=== PATIENT | male | born 1990 | race Caucasian/White ===

== ENCOUNTER 2016-12-10 15:38 | Emergency (ER) | payer SELFPAY ==
[~2016-12-10] VITALS: Ht 167.6 cm; Wt 70.0 kg
[2016-12-10 15:40] VITALS: BP 127/62; PULSE 84; RESP 16; TEMP 97.9; O2SAT 95
[2016-12-10] MEDS ORDERED: PRED20 PO (16:38)
[2016-12-10] MEDS ORDERED: CLOTCRE TOPICAL (16:38)
--- NOTE | 2016-12-10 16:39 | PD ---
HPI Chief Complaint: Skin Problem Time Seen by Provider: 16:34 Travel History International Travel<30 days: No Contact w/Intl Traveler<30days: No Traveled to known affect area: No History of Present Illness HPI 26-year-old male presents to the emergency department for evaluation of an erythematous itchy rash to the back of his bilateral knees and also to his bilateral forearms. He states it started 2 days ago while at work. He denies any fevers or chills. No difficulty breathing. No difficulty swallowing. No angioedema. He states that he had prescriptions for 2 antibiotics, Keflex and Bactrim at home which she just filled and started 2 days ago. He also states he is using an [id number] cream without improvement. He denies any pain, just itchiness. He reports no chronic medical problems. He has no other complaints. [facility] Social History Alcohol Use: No Tobacco Use: No Substance Use: No Allergies-Medications (Allergen,Severity, Reaction): Coded Allergies: No Known Allergies (Unverified , 12/10/16) Review of Systems Except as stated in HPI: all other systems reviewed are Neg Physical Exam Narrative GENERAL: Well-developed well-nourished male patient, ambulatory. Afebrile. SKIN: Warm and dry. Patient has erythematous, scaly rash to the bilateral posterior knees into the bilateral anterior forearms. No warmth or induration. HEAD: Normocephalic. Atraumatic. EYES: No scleral icterus. No injection or drainage. NECK: Supple, trachea midline. No JVD or lymphadenopathy. CARDIOVASCULAR: Regular rate and rhythm without murmurs, gallops, or rubs. RESPIRATORY: Breath sounds equal bilaterally. No accessory muscle use. Lungs sounds are clear to auscultation. GASTROINTESTINAL: Abdomen soft, non-tender, nondistended. MUSCULOSKELETAL: No cyanosis, or edema. Data Data Last Documented VS Vital Signs Date Time Temp Pulse Resp B/P Pulse Ox O2 Delivery O2 Flow Rate FiO2 12/10/16 15:40 97.9 84 16 127/62 95 Room Air Orders Dexamethasone Inj (Decadron Inj) (12/10/16 16:45) Diphenhydramine (Benadryl) (12/10/16 16:45) MDM Medical Decision Making Medical Screen Exam Complete: Yes Emergency Medical Condition: Yes Medical Record Reviewed: Yes Differential Diagnosis Contact dermatitis versus insect bites versus Rhona intertrigo Narrative Course 26-year-old male presents to the emergency department for evaluation of itchy rash for 2 days to the bilateral posterior knees the bilateral anterior forearms. No pain. No evidence of cellulitis. Patient is on Keflex and Bactrim are prescribed to him at a previous visit, but he did not fill. He fill these 2 days ago started taking them. The patient is given dexamethasone 8 mg IM in the emergency department. He is also given Benadryl 25 mg by mouth. He'll be discharged with a prescription prescription for prednisone and clotrimazole betamethasone cream. He verbalizes agreement to this. He is instructed to follow-up with a primary care physician. He is return for any acute worsening of symptoms. Diagnosis Primary Impression: Dermatitis Referrals: Primary Care Physician call for appointment Patient Instructions: Dermatitis (ED), General Instructions Additional Instructions: Use prescribed cream as directed. Take prednisone as directed. Start this tomorrow. Continue antibiotics until gone. Follow-up with your primary care physician. Return to the emergency department for any acute worsening of symptoms. Med/Other Pt SpecificInfo: Prescription(s) given Scripts Clotrimazole-Betamethasone Topical 1-0.05% Cream1 Applic TOPICAL BID #45 GM Ref 0 Prov:Bridget Alonzo 12/10/16 Prednisone 20 Mg Tab40 Mg PO DAILY 4 Days Ref 0 Prov:Bridget Alonzo 12/10/16 Disposition: 01 DISCHARGE HOME Condition: Stable Bridget Alonzo Dec 10, 2016 16:39
[2016-12-10] MEDS ORDERED: diphenhydrAMINE HCL 25 MG CAP PO ONE (16:45)
[2016-12-10] MEDS ORDERED: DEXAMETHASONE SOD PHOS 4 MG/ML VIAL IM ONE (16:45)
== END 2016-12-10 16:56 | disposition home or self-care (01) ==
LOC: NEPB 15:38
DX: L30.9 Dermatitis, unspecified (principal)
CPT/HCPCS: 96372; 99282

== ENCOUNTER 2017-02-03 00:26 | Emergency (ER) | payer OTHER ==
[~2017-02-03] VITALS: Ht 167.6 cm; Wt 55.0 kg
[~2017-02-03 00:26] MED LIST: CLOTCRE TOPICAL; PRED20 PO
[2017-02-03 00:37] VITALS: BP 139/90; PULSE 114; RESP 22; TEMP 99; O2SAT 99
--- NOTE | 2017-02-03 00:43 | PD ---
HPI Chief Complaint: Psychiatric Symptoms Time Seen by Provider: 00:30 Travel History International Travel<30 days: No Contact w/Intl Traveler<30days: No Traveled to known affect area: No History of Present Illness HPI 26-year-old male was Dale acted and brought in for psychiatric evaluation. Patient has been living with his grandmother. Patient was found combative at home tonight. Patient was fall hitting himself at home and combative. Police was called. Patient was Dale acted and brought in for psychiatric evaluation. Grandmother reported to law enforcement that the patient had some psychiatric problem in the past. Unable to get more information. Patient denies any alcohol or drug abuse. Patient denies any headache. Patient denies any chest pain or shortness of breath. Patient denies abdominal pain. Patient denies any extremity injury. [facility] Social History Alcohol Use: No Tobacco Use: No Substance Use: No Allergies-Medications (Allergen,Severity, Reaction): Coded Allergies: No Known Allergies (Unverified , 02/03/17) Reported Meds & Prescriptions Reported Meds & Active Scripts Active No Active Prescriptions or Reported Medications Review of Systems General / Constitutional: No: Fever Eyes: No: Visual changes HENT: No: Headaches Cardiovascular: No: Chest Pain or Discomfort Respiratory: No: Shortness of Breath Gastrointestinal: No: Abdominal Pain Genitourinary: No: Dysuria Musculoskeletal: No: Pain Skin: No Rash Neurologic: No: Weakness Psychiatric: No: Depression Endocrine: No: Polydipsia Hematologic/Lymphatic: No: Easy Bruising Physical Exam Narrative GENERAL: Well-nourished, well-developed patient. SKIN: Focused skin assessment warm/dry. HEAD: Normocephalic. EYES: No scleral icterus. No injection or drainage. NECK: Supple, trachea midline. No JVD or lymphadenopathy. CARDIOVASCULAR: Regular rate and rhythm without murmurs, gallops, or rubs. RESPIRATORY: Breath sounds equal bilaterally. No accessory muscle use. GASTROINTESTINAL: Abdomen soft, non-tender, nondistended. MUSCULOSKELETAL: No cyanosis, or edema. BACK: Nontender without obvious deformity. No CVA tenderness. Neurologic exam: Patient's combative and nonstop talking. Patient moves all extremities well. No obvious focal neurological deficit. MDM Medical Decision Making Medical Screen Exam Complete: Yes Emergency Medical Condition: Yes Differential Diagnosis Differential diagnosis including psychosis, schizophrenia, substance abuse. Narrative Course 26-year-old male was found combative and would not stop talking and hitting himself at home. Patient was Hunter acted and brought in for psychiatric evaluation. Haldol 5 mg IM. Ativan 2 mg IM. Scripts No Active Prescriptions or Reported Meds Rg Vaughan MD February 03, 2017 00:43
[2017-02-03] MEDS ORDERED: LORazepam 2 MG/ML VIAL IM ONE (00:45)
[2017-02-03] MEDS ORDERED: HALOPERIDOL LACTATE 5 MG/ML AMP IM ONE (00:45)
[2017-02-03 01:17] LABS: AUTOMATED NEUTROPHIL # 10.7 TH/MM3 (1.8-7.7); BASOPHIL # 0.1 TH/MM3 (0-0.2); BASOPHIL % 0.8 % (0.0-2.0); EOSINOPHIL # 0.2 TH/MM3 (0-0.4); EOSINOPHIL % 1.4 % (0.0-4.0); HEMO FLAGS DIFF FINAL; LYMPH % 22.6 % (9.0-44.0); LYMPHOCYTE # 3.6 TH/MM3 (1.0-4.8); MEAN CELL VOLUME 85.9 FL (80.0-100.0); MEAN CORPUSCULAR HEMOGLOBIN 30.6 PG (27.0-34.0); MEAN CORPUSCULAR HGB CONC 35.6 % (32.0-36.0); MONO % 8.9 % (0.0-8.0); NEUT % 66.3 % (16.0-70.0); PLATELET COUNT 320 TH/MM3 (150-450); RED BLOOD COUNT 4.77 MIL/MM3 (4.50-5.90); RED CELL DISTRIBUTION WIDTH 12.9 % (11.6-17.2); WHITE BLOOD COUNT 16.1 TH/MM3 (4.0-11.0)
[2017-02-03 01:35] LABS: ALKALINE PHOSPHATASE 63 U/L (45-117)
[2017-02-03 01:42] LABS: ALT (GPT) 83 U/L (12-78); ANION GAP 5 MEQ/L (5-15); AST (GOT) 55 U/L (15-37); BICARBONATE 30.8 MEQ/L (21.0-32.0); BLOOD UREA NITROGEN 17 MG/DL (7-18); CHLORIDE 106 MEQ/L (98-107); GLOMERULAR FILTRATION RATE 55 ML/MIN (>89); POTASSIUM 3.4 MEQ/L (3.5-5.1); SODIUM (NA) 142 MEQ/L (136-145)
--- NOTE | 2017-02-03 04:39 | PD ---
Physical Exam Time Seen by Provider: 01:00 Narrative Please refer to previous providers documentation for details surrounding the patient's current visit. Data Data Last Documented VS Vital Signs Date Time Temp Pulse Resp B/P Pulse Ox O2 Delivery O2 Flow Rate FiO2 02/03/17 00:37 99.0 114 22 139/90 99 Orders Haloperidol Inj (Haldol Inj) (02/03/17 00:45) Lorazepam Inj (Ativan Inj) (02/03/17 00:45) Complete Blood Count With Diff (02/03/17 00:39) Comprehensive Metabolic Panel (02/03/17 00:39) Psych Screen (02/03/17 00:39) Drug Screen, Random Urine (02/03/17 00:39) Labs Laboratory Tests Test 02/03/17 01:03 White Blood Count 16.1 TH/MM3 Red Blood Count 4.77 MIL/MM3 Hemoglobin 14.6 GM/DL Hematocrit 41.0 % Mean Corpuscular Volume 85.9 FL Mean Corpuscular Hemoglobin 30.6 PG Mean Corpuscular Hemoglobin 35.6 % Concent Red Cell Distribution Width 12.9 % Platelet Count 320 TH/MM3 Mean Platelet Volume 8.2 FL Neutrophils (%) (Auto) 66.3 % Lymphocytes (%) (Auto) 22.6 % Monocytes (%) (Auto) 8.9 % Eosinophils (%) (Auto) 1.4 % Basophils (%) (Auto) 0.8 % Neutrophils # (Auto) 10.7 TH/MM3 Lymphocytes # (Auto) 3.6 TH/MM3 Monocytes # (Auto) 1.4 TH/MM3 Eosinophils # (Auto) 0.2 TH/MM3 Basophils # (Auto) 0.1 TH/MM3 CBC Comment DIFF FINAL Differential Comment Sodium Level 142 MEQ/L Potassium Level 3.4 MEQ/L Chloride Level 106 MEQ/L Carbon Dioxide Level 30.8 MEQ/L Anion Gap 5 MEQ/L Blood Urea Nitrogen 17 MG/DL Creatinine 1.52 MG/DL Estimat Glomerular Filtration 55 ML/MIN Rate Random Glucose 72 MG/DL Calcium Level 9.7 MG/DL Total Bilirubin 1.0 MG/DL Aspartate Amino Transf 55 U/L (AST/SGOT) Alanine Aminotransferase 83 U/L (ALT/SGPT) Alkaline Phosphatase 63 U/L Total Protein 7.8 GM/DL Albumin 4.1 GM/DL [facility] Medical Record Reviewed: Yes Supervised Visit with VINI: No Narrative Course Patient decided to me with lab work pain. Patient does have leukocytosis of 16.1, likely stress reaction. Creatinine is elevated with decreased GFR with slightly elevated AST and ALT. These will need to be reassessed outpatient through primary care provider's office. Patient is resting with his eyes closed when I reassess him. He appears without distress. He has been medicated. At this time he is medically cleared to undergo psychiatric screening for further evaluation and disposition. Laboratory Tests Test 02/03/17 01:03 White Blood Count 16.1 TH/MM3 Red Blood Count 4.77 MIL/MM3 Hemoglobin 14.6 GM/DL Hematocrit 41.0 % Mean Corpuscular Volume 85.9 FL Mean Corpuscular Hemoglobin 30.6 PG Mean Corpuscular Hemoglobin 35.6 % Concent Red Cell Distribution Width 12.9 % Platelet Count 320 TH/MM3 Mean Platelet Volume 8.2 FL Neutrophils (%) (Auto) 66.3 % Lymphocytes (%) (Auto) 22.6 % Monocytes (%) (Auto) 8.9 % Eosinophils (%) (Auto) 1.4 % Basophils (%) (Auto) 0.8 % Neutrophils # (Auto) 10.7 TH/MM3 Lymphocytes # (Auto) 3.6 TH/MM3 Monocytes # (Auto) 1.4 TH/MM3 Eosinophils # (Auto) 0.2 TH/MM3 Basophils # (Auto) 0.1 TH/MM3 CBC Comment DIFF FINAL Differential Comment Sodium Level 142 MEQ/L Potassium Level 3.4 MEQ/L Chloride Level 106 MEQ/L Carbon Dioxide Level 30.8 MEQ/L Anion Gap 5 MEQ/L Blood Urea Nitrogen 17 MG/DL Creatinine 1.52 MG/DL Estimat Glomerular Filtration 55 ML/MIN Rate Random Glucose 72 MG/DL Calcium Level 9.7 MG/DL Total Bilirubin 1.0 MG/DL Aspartate Amino Transf 55 U/L (AST/SGOT) Alanine Aminotransferase 83 U/L (ALT/SGPT) Alkaline Phosphatase 63 U/L Total Protein 7.8 GM/DL Albumin 4.1 GM/DL Diagnosis Primary Impression: Acute psychosis Additional Impression: JOELLE (acute kidney injury) Scripts No Active Prescriptions or Reported Meds Condition: Stable VeronicaBárbaraMarissabacilio DECKER February 03, 2017 04:39
[2017-02-03 08:50] VITALS: BP 101/55; PULSE 67; RESP 18; O2SAT 99
--- NOTE | 2017-02-03 11:13 | PD ---
History of Present Illness Chief Complaint: Psychiatric Symptoms Time Seen by Provider: 11:00 Travel History International Travel<30 Days: No Contact w/Intl Traveler<30days: No Known affected area: No Legal Status Legal Status: Hunter Act Hunter Act Signed By: History of Present Illness: This is a 26-year-old male who admits to becoming extremely upset last night and was striking himself and demonstrating out of control behavior. This morning he is calm and pleasant and cooperative. He denies any suicidal or homicidal ideation, plan or intent. He is verbally lili for safety and his cognition is intact. He reports a long history of arguing with his grandmother, with whom he lives. States this physician does not want to hear the long story but he does want to go home to live at his grandmother's house. Patient demonstrates no symptoms of psychosis and no symptoms of depression at this point. He can be treated on an outpatient basis and does not meet criteria for inpatient psychiatric hospitalization or Hunter act, in my opinion. PFSH Past Medical History Medical History: Denies Significant Hx Past Surgical History Surgical History: No Previous Surgery Psychiatric History Psychiatric History Hx Psychiatric Treatment: Denied Social History Hx Alcohol Use: No Hx Tobacco Use: No Hx Substance Use: No Substance Use Type: Alcohol Hx of Substance Use Treatment: No Allergies-Medications (Allergen,Severity, Reaction): Coded Allergies: No Known Allergies (Unverified , 02/03/17) Reported Meds & Prescriptions Reported Meds & Active Scripts Active No Active Prescriptions or Reported Medications Review of Systems Except as stated in HPI: all other systems reviewed are Neg Exam Alert: Yes [place]: Person, Place, Date, Situation Mood: Calm Affect: Appropriate Speech: Clear, Logical Eye Contact: Indirect Memory Intact: Immediate, Recent, Remote Insight/Judgement Adequate MDM Medical Decision Making Medical Record Reviewed: Yes Assessment/Plan Patient is being discharged home and his Hunter act is being lifted. This physician notes the patient is unwilling to provide urine to the nursing staff, here in the emergency department. This physician feels the patient is using illicit substances and does not want to be discovered. Patient declines to talk about this. However, at this time the patient is not appearing to be intoxicated from any substance or alcohol. He is otherwise calm and pleasant and cooperative. Orders Haloperidol Inj (Haldol Inj) (02/03/17 00:45) Lorazepam Inj (Ativan Inj) (02/03/17 00:45) Complete Blood Count With Diff (02/03/17 00:39) Comprehensive Metabolic Panel (02/03/17 00:39) Psych Screen (02/03/17 00:39) Drug Screen, Random Urine (02/03/17 00:39) Diet Regular Basic (02/03/17 Breakfast) Results Vital Signs Date Time Temp Pulse Resp B/P Pulse Ox O2 Delivery O2 Flow Rate FiO2 02/03/17 08:50 67 18 101/55 99 Room Air 02/03/17 00:37 99.0 114 22 139/90 99 Laboratory Tests Test 02/03/17 01:03 White Blood Count 16.1 Red Blood Count 4.77 Hemoglobin 14.6 Hematocrit 41.0 Mean Corpuscular Volume 85.9 Mean Corpuscular Hemoglobin 30.6 Mean Corpuscular Hemoglobin 35.6 Concent Red Cell Distribution Width 12.9 Platelet Count 320 Mean Platelet Volume 8.2 Neutrophils (%) (Auto) 66.3 Lymphocytes (%) (Auto) 22.6 Monocytes (%) (Auto) 8.9 Eosinophils (%) (Auto) 1.4 Basophils (%) (Auto) 0.8 Neutrophils # (Auto) 10.7 Lymphocytes # (Auto) 3.6 Monocytes # (Auto) 1.4 Eosinophils # (Auto) 0.2 Basophils # (Auto) 0.1 CBC Comment DIFF FINAL Differential Comment Sodium Level 142 Potassium Level 3.4 Chloride Level 106 Carbon Dioxide Level 30.8 Anion Gap 5 Blood Urea Nitrogen 17 Creatinine 1.52 Estimat Glomerular Filtration 55 Rate Random Glucose 72 Calcium Level 9.7 Total Bilirubin 1.0 Aspartate Amino Transf 55 (AST/SGOT) Alanine Aminotransferase 83 (ALT/SGPT) Alkaline Phosphatase 63 Total Protein 7.8 Albumin 4.1 Diagnosis Primary Impression: Adjustment disorder with mixed disturbance of emotions and conduct Additional Impression: Dermatitis Prescriptions No Active Prescriptions or Reported Meds Condition: Stable Problem Qualifiers Kedar Cabrera MD February 03, 2017 11:13
== END 2017-02-03 21:30 | disposition home or self-care (01) ==
LOC: NEPD 00:26
DX: F43.25 Adjustment disorder with mixed disturbance of emotions and conduct (principal); N17.9 Acute kidney failure, unspecified; L30.9 Dermatitis, unspecified
CPT/HCPCS: 80053; 85025; 96372; 99284; J1630; J2060

== ENCOUNTER 2017-07-22 20:54 | Emergency (ER) | payer OTHER ==
[~2017-07-22] VITALS: Ht 172.7 cm; Wt 71.0 kg
[2017-07-22 21:02] VITALS: BP 154/75; PULSE 124; RESP 20; TEMP 98.7
[2017-07-22 22:28] LABS: AUTOMATED NEUTROPHIL # 12.5 TH/MM3 (1.8-7.7); BASOPHIL # 0.1 TH/MM3 (0-0.2); BASOPHIL % 0.3 % (0.0-2.0); EOSINOPHIL # 0.1 TH/MM3 (0-0.4); EOSINOPHIL % 0.4 % (0.0-4.0); HEMATOCRIT 41.2 % (39.0-51.0); LYMPH % 17.9 % (9.0-44.0); LYMPHOCYTE # 3.2 TH/MM3 (1.0-4.8); MEAN CELL VOLUME 87.5 FL (80.0-100.0); MEAN CORPUSCULAR HEMOGLOBIN 30.3 PG (27.0-34.0); MEAN CORPUSCULAR HGB CONC 34.6 % (32.0-36.0); MONO % 12.4 % (0.0-8.0); PLATELET COUNT 297 TH/MM3 (150-450); RED BLOOD COUNT 4.71 MIL/MM3 (4.50-5.90); RED CELL DISTRIBUTION WIDTH 13.1 % (11.6-17.2); WHITE BLOOD COUNT 18.1 TH/MM3 (4.0-11.0)
[2017-07-22 22:31] LABS: HEMO FLAGS AUTO DIFF
[2017-07-22 22:41] LABS: ALT (GPT) 147 U/L (12-78); ANION GAP 11 MEQ/L (5-15); AST (GOT) 97 U/L (15-37); BICARBONATE 25.4 MEQ/L (21.0-32.0); BLOOD UREA NITROGEN 19 MG/DL (7-18); CHLORIDE 103 MEQ/L (98-107); GLOMERULAR FILTRATION RATE 90 ML/MIN (>89); SODIUM (NA) 139 MEQ/L (136-145)
[2017-07-22 22:43] LABS: ALKALINE PHOSPHATASE 70 U/L (45-117); TOTAL BILIRUBIN ADULT 1.3 MG/DL (0.2-1.0)
[2017-07-22] MEDS ORDERED: LORazepam 2 MG/ML VIAL IM ONE (22:45)
[2017-07-22] MEDS ORDERED: HALOPERIDOL LACTATE 5 MG/ML AMP IM ONE (22:45)
[2017-07-22 22:54] LABS: ACETAMINOPHEN LESS THAN 2.0 MCG/ML (10.0-30.0); ALCOHOL LESS THAN 3 MG/DL (0-5)
--- NOTE | 2017-07-22 23:03 | PD ---
HPI Chief Complaint: Psychiatric Symptoms Time Seen by Provider: 22:38 Travel History International Travel<30 days: No Contact w/Intl Traveler<30days: No Traveled to known affect area: No History of Present Illness HPI 27-year-old white male presents to emergency department under Hunter act by PD. Patient was Hunter acted due to IV substance abuse. The patient appeared to be acutely disorganized and agitated. There is no documentation or history of suicidal or homicidal ideation. Patient is very disruptive to care. He denies any toxic ingestions. He states that he is been in a drug study. Patient denies any suicidal or homicidal ideation. Patient is disorganized. A complete review of systems is unobtainable at this time. [facility] Past Medical History Medical History: Denies Significant Hx Immunizations Current: Yes Past Surgical History Surgical History: No Previous Surgery Social History Alcohol Use: No Tobacco Use: No Substance Use: Yes (HX CANNABIS, COCAINE) Allergies-Medications (Allergen,Severity, Reaction): Coded Allergies: No Known Allergies (Unverified Adverse Reaction, Unknown, 07/22/17) Reported Meds & Prescriptions Reported Meds & Active Scripts Active No Active Prescriptions or Reported Medications Review of Systems ROS Limitations: Psychotic Physical Exam Narrative GENERAL: Well-nourished, well-developed patient. Agitated, disruptive care. Banging his head against the door. Patient is placed into bilateral restraints. Patient is very loud, belligerent and using profanity. SKIN: Warm and dry. HEAD: Normocephalic and atraumatic. EYES: No scleral icterus. No injection or drainage. ENT: No nasal drainage noted. Mucous membranes pink. Airway patent. NECK: Supple, trachea midline. Moves head freely without obvious discomfort. CARDIOVASCULAR: Regular rate and rhythm without murmurs, gallops, or rubs. RESPIRATORY: Breath sounds equal bilaterally. No accessory muscle use. GASTROINTESTINAL: Abdomen soft, non-tender, nondistended. EXTREMITIES: No cyanosis or edema. BACK: Nontender without obvious deformity. No CVA tenderness. NEURO: Patient is alert and oriented to person. no sensorimotor deficits. Nonfocal. Normal speech PSYCH: Poor insight and judgment. Acutely delusional. Very agitated. Data Data Last Documented VS Vital Signs Date Time Temp Pulse Resp B/P (MAP) Pulse Ox O2 Delivery O2 Flow Rate FiO2 07/22/17 21:02 98.7 124 20 154/75 (101) Orders Orders Complete Blood Count With Diff (07/22/17 21:40) Comprehensive Metabolic Panel (07/22/17 21:40) Psych Screen (07/22/17 21:40) Drug Screen, Random Urine (07/22/17 21:40) Alcohol (Ethanol) (07/22/17 21:40) Salicylates (Aspirin) (07/22/17 21:40) Tylenol (Acetaminophen) (07/22/17 21:40) Haloperidol Inj (Haldol Inj) (07/22/17 22:45) Lorazepam Inj (Ativan Inj) (07/22/17 22:45) Restraints Violent (07/22/17 22:39) Labs Laboratory Tests Test 07/22/17 21:43 White Blood Count 18.1 TH/MM3 Red Blood Count 4.71 MIL/MM3 Hemoglobin 14.2 GM/DL Hematocrit 41.2 % Mean Corpuscular Volume 87.5 FL Mean Corpuscular Hemoglobin 30.3 PG Mean Corpuscular Hemoglobin Concent 34.6 % Red Cell Distribution Width 13.1 % Platelet Count 297 TH/MM3 Mean Platelet Volume 8.5 FL Neutrophils (%) (Auto) 69.0 % Lymphocytes (%) (Auto) 17.9 % Monocytes (%) (Auto) 12.4 % Eosinophils (%) (Auto) 0.4 % Basophils (%) (Auto) 0.3 % Neutrophils # (Auto) 12.5 TH/MM3 Lymphocytes # (Auto) 3.2 TH/MM3 Monocytes # (Auto) 2.2 TH/MM3 Eosinophils # (Auto) 0.1 TH/MM3 Basophils # (Auto) 0.1 TH/MM3 CBC Comment AUTO DIFF Differential Comment AUTO DIFF CONFIRMED Blood Urea Nitrogen 19 MG/DL Creatinine 0.99 MG/DL Random Glucose 70 MG/DL Total Protein 8.5 GM/DL Albumin 4.5 GM/DL Calcium Level 9.4 MG/DL Alkaline Phosphatase 70 U/L Aspartate Amino Transf (AST/SGOT) 97 U/L Alanine Aminotransferase (ALT/SGPT) 147 U/L Total Bilirubin 1.3 MG/DL Sodium Level 139 MEQ/L Potassium Level 4.0 MEQ/L Chloride Level 103 MEQ/L Carbon Dioxide Level 25.4 MEQ/L Anion Gap 11 MEQ/L Estimat Glomerular Filtration Rate 90 ML/MIN Salicylates Level LESS THAN 1.7 MG/DL Acetaminophen Level LESS THAN 2.0 MCG/ML Ethyl Alcohol Level LESS THAN 3 MG/DL MDM Medical Decision Making Medical Screen Exam Complete: Yes Emergency Medical Condition: Yes Medical Record Reviewed: Yes Interpretation(s) CBC & BMP Diagram 07/22/17 21:43 Total Protein 8.5 H, Albumin 4.5, Calcium Level 9.4, Alkaline Phosphatase 70, Aspartate Amino Transf (AST/SGOT) 97 H, Alanine Aminotransferase (ALT/SGPT) 147 H, Total Bilirubin 1.3 H Differential Diagnosis MDM: High Differential diagnoses: Schizophrenia, schizoaffective disorder, bipolar, anxiety, depression, adjustment reaction, mood disorder NOS, ODD, depressive disorder NOS, dementia, dementia with agitation, psychosis NOS, substance induced mood disorder, DMDD, Asperger syndrome, infection,electrolyte abnormality, malingering. Narrative Course Mental health screening discussed with the patient. Psychiatric screen ordered. Vital restraints have been ordered. Patient's given Haldol 10 mg IM and Ativan 2 mg IM. Patient is very agitated, delusional, threatening him belligerent towards staff. The patient is restrained to avoid injury to the staff as well as the patient. This is medical clearance for psychiatric admission, substance induced psychosis , IV drug abuse Diagnosis Primary Impression: Medical clearance for psychiatric admission Additional Impressions: Substance-induced psychotic disorder IV drug abuse Scripts No Active Prescriptions or Reported Meds Condition: Jose M Seymour Jul 22, 2017 23:03
[2017-07-22 23:04] LABS: SCAN/DIFF AUTO DIFF CONFIRMED
[2017-07-23 07:18] VITALS: BP 125/80; PULSE 78; RESP 16; TEMP 98.2; O2SAT 98
[2017-07-23 13:53] VITALS: BP 118/65; PULSE 76; RESP 16; TEMP 98.2; O2SAT 98
--- NOTE | 2017-07-23 15:35 | PD ---
History of Present Illness Chief Complaint: Psychiatric Symptoms Time Seen by Provider: 15:30 Travel History International Travel<30 Days: No Contact w/Intl Traveler<30days: No Known affected area: No Legal Status Legal Status: Hunter Act Hunter Act Signed By: Philipp Clark Hunter Act Comment: BA signed by: RONDA SLOAN Badge#[id number], Case#[id number] History of Present Illness: 27-year-old male presents under a Hunter act for unknown intoxication with belligerent and psychotic/disorganized behavior. Patient is no longer intoxicated and his cognition is intact. He has no psychotic symptoms. He is verbally lili for safety and he is competent to do so. He denies suicidal or homicidal ideation, plan or intent. He lives with his mother in [facility] and he would like to return to her. He does admit to unknown [place] in [place]. He states they were doing some type of experimentation on him with unknown drugs. [facility] Past Medical History Medical History: Denies Significant Hx Immunizations Current: Yes Past Surgical History Surgical History: No Previous Surgery Psychiatric History Psychiatric History Hx Psychiatric Treatment: says he was admitted to [facility] approx 2 years ago. Patient has a self-admitted history of polysubstance abuse. History of Inpatient Treatment: Yes Guns or firearms in home: No Social History Hx Alcohol Use: No Hx Tobacco Use: No Hx Substance Use: No (Pt vdenies) Substance Use Type: Alcohol Other Substances Used: PT denies Hx of Substance Use Treatment: No Allergies-Medications (Allergen,Severity, Reaction): Coded Allergies: No Known Allergies (Unverified Adverse Reaction, Unknown, 07/22/17) Reported Meds & Prescriptions Reported Meds & Active Scripts Active No Active Prescriptions or Reported Medications Review of Systems Except as stated in HPI: all other systems reviewed are Neg Mental Status Examination Appearance: Appropriate Consciousness: Alert Orientation: x4 Motor Activity: Normal gait Speech: Unremarkable Language: Adequate Fund of Knowledge: Adequate Attention and Concentration: Adequate Memory: Unremarkable Mood: Appropriate Affect: Appropriate Thought Process & Associations: Intact Thought Content: Appropriate Hallucination Type: None Delusion Type: None Suicidal Ideation: No Suicidal Plan: No Suicidal Intention: No Homicidal Ideation: No Homicidal Plan: No Homicidal Intention: No Insight: Adequate Judgment: Adequate [facility] Medical Decision Making Medical Record Reviewed: Yes Assessment/Plan 27-year-old male who is no longer intoxicated, verbally lili for safety and competent to do so. No suicidal or homicidal ideation, plan or intent. Patient does not meet Hunter act criteria at this time and does not meet criteria for involuntary psychiatric hospitalization. This physician notes the absence of a comprehensive drug toxicology screen. However, the patient is not clinically intoxicated, psychotic, or cognitively impaired at this time. Orders Orders Complete Blood Count With Diff (07/22/17 21:40) Comprehensive Metabolic Panel (07/22/17 21:40) Psych Screen (07/22/17 21:40) Drug Screen, Random Urine (07/22/17 21:40) Alcohol (Ethanol) (07/22/17 21:40) Salicylates (Aspirin) (07/22/17 21:40) Tylenol (Acetaminophen) (07/22/17 21:40) Haloperidol Inj (Haldol Inj) (07/22/17 22:45) Lorazepam Inj (Ativan Inj) (07/22/17 22:45) Restraints Violent (07/22/17 22:39) Diet Regular Basic (07/23/17 Lunch) Results Vital Signs Date Time Temp Pulse Resp B/P (MAP) Pulse Ox O2 Delivery O2 Flow Rate FiO2 07/23/17 13:53 98.2 76 16 118/65 (82) 98 Room Air 07/23/17 07:18 78 16 07/23/17 07:18 98.2 78 16 125/80 (95) 98 Room Air 07/22/17 21:02 98.7 124 20 154/75 (101) Laboratory Tests Test 07/22/17 21:43 White Blood Count 18.1 Red Blood Count 4.71 Hemoglobin 14.2 Hematocrit 41.2 Mean Corpuscular Volume 87.5 Mean Corpuscular Hemoglobin 30.3 Mean Corpuscular Hemoglobin Concent 34.6 Red Cell Distribution Width 13.1 Platelet Count 297 Mean Platelet Volume 8.5 Neutrophils (%) (Auto) 69.0 Lymphocytes (%) (Auto) 17.9 Monocytes (%) (Auto) 12.4 Eosinophils (%) (Auto) 0.4 Basophils (%) (Auto) 0.3 Neutrophils # (Auto) 12.5 Lymphocytes # (Auto) 3.2 Monocytes # (Auto) 2.2 Eosinophils # (Auto) 0.1 Basophils # (Auto) 0.1 CBC Comment AUTO DIFF Differential Comment AUTO DIFF CONFIRMED Blood Urea Nitrogen 19 Creatinine 0.99 Random Glucose 70 Total Protein 8.5 Albumin 4.5 Calcium Level 9.4 Alkaline Phosphatase 70 Aspartate Amino Transf (AST/SGOT) 97 Alanine Aminotransferase (ALT/SGPT) 147 Total Bilirubin 1.3 Sodium Level 139 Potassium Level 4.0 Chloride Level 103 Carbon Dioxide Level 25.4 Anion Gap 11 Estimat Glomerular Filtration Rate 90 Salicylates Level LESS THAN 1.7 Acetaminophen Level LESS THAN 2.0 Ethyl Alcohol Level LESS THAN 3 Diagnosis Primary Impression: Polysubstance abuse Referrals: [facility] Departure Forms: Tests/Procedures Patient Instructions: General Instructions, Polysubstance Abuse (ED) Prescriptions No Active Prescriptions or Reported Meds Disposition: 01 DISCHARGE HOME Condition: Stable Kedar Cabrera MD Jul 23, 2017 15:35
== END 2017-07-23 15:47 | disposition home or self-care (01) ==
LOC: NEPD 20:54
DX: F19.159 Other psychoactive substance abuse with psychoactive substance-induced psychotic disorder, unspecified (principal); F19.10 Other psychoactive substance abuse, uncomplicated
CPT/HCPCS: 80053; 80307; 85025; 96372; 99285; J1630; J2060